=== PATIENT | male | born 1945 | race Caucasian/White ===

== ENCOUNTER 2017-01-04 16:29 | Emergency (ER) | payer OTHER ==
[~2017-01-04] VITALS: Ht 177.8 cm; Wt 44.4 kg
[~2017-01-04 16:29] MED LIST: ASPIRIN81 M2 PO; B-121000 MC2 PO; CALCIUM + D3 E1 EACH PO; CELEXA20 MG PO; FLOMAX0.4 MG PO; KEFLEX500 MG PO; LOTENSIN20 MG PO; METAMUCIL POWD798 GM PO; PROAIR HFA8.5 GM IH; ZOCOR20 MG PO
[2017-01-04 16:52] LABS: EOSINOPHIL (%) 0.8 % (0-5); HEMATOCRIT 35.3 % (38.0-50.0); IMMATURE GRANULOCYTE (%) 0.2 % (0.0-0.7); INSTRUMENT ABS NEUTROPHIL CT 3.4 K/uL; LYMPHOCYTE COUNT 1.2 K/uL (1.0-2.8); MCH 30.4 PG (29.0-34.0); MCHC 32.9 G/DL (30.0-36.0); MCV 92.7 FL (86-99); MEAN PLAT.VOLUME 10.1 uM^3 (9.0-12.4); MONOCYTE COUNT 0.4 K/uL (0-0.8); NEUTROPHIL (%) 66.3 % (45-76); NEUTROPHIL COUNT 3.4 K/uL (1.8-6.4); PLATELET COUNT 231 K/uL (156-360); RBC DIS.WIDTH-CV 14.3 % (11.8-14.6); RBC DIS.WIDTH-SD 48.5 % (39-53); RED BLOOD COUNT 3.81 M/uL (4.00-5.50); WHITE BLOOD COUNT 5.1 K/uL (4.1-10.2)
[2017-01-04 17:01] LABS: INTER. NORMALIZED RATIO 1.1; PROTHROMBIN TIME 10.7 (9.2-11.2); PTT 27.8 (25-32)
[2017-01-04 17:02] LABS: AMYLASE 49 IU/L (1-118); CHLORIDE 102 mEq/L (99-109); POTASSIUM 4.3 mEq/L (3.7-5.4); SODIUM 138 mEq/L (136-147)
[2017-01-04 17:03] LABS: GLUCOSE 83 mg/dL (70-99)
[2017-01-04 17:05] LABS: ANION GAP 7 MEQ/L (2-14)
[2017-01-04 17:07] LABS: GFR ESTIMATE (CALCULATED) > 59 mL/min/; SERUM ETHYL ALCOHOL < 10 mg/dL
[2017-01-04 17:08] LABS: UREA NITROGEN (BUN) 19 mg/dL (9-23)
[2017-01-04 17:09] LABS: POINT-OF-CARE METER ID UU13113702
[2017-01-04 17:10] LABS: LIPASE 34 U/L (1.0-51.0)
[2017-01-04 17:12] LABS: TROP-I INTERPRETATION NEGATIVE; TROPONIN-I < 0.01 ng/mL (0.0-0.30)
[2017-01-04 17:13] LABS: CREATININE 0.9 mg/dL (0.6-1.3); POTASSIUM 4.9 mEq/L (3.7-5.4)
[2017-01-04 18:51] VITALS: BP 147/81
== END 2017-01-04 18:53 | disposition short-term general hospital (02) ==
LOC: EME 16:29
PROVIDERS: Emergency Medicine
DX: I63.9 Cerebral infarction, unspecified (principal); R29.716 NIHSS score 16; I10 Essential (primary) hypertension; E78.5 Hyperlipidemia, unspecified; F17.200 Nicotine dependence, unspecified, uncomplicated; Z86.73 Personal history of transient ischemic attack (TIA), and cerebral infarction without residual deficits
CPT/HCPCS: 70450; 70496; 70498; 80047; 80048; 81003; 82150; 82948; 83605; 83690; 84484; 85025; 85610; 85730; 86850; 86900; 86901; 93005; 99281; 99285; G0480; J2997

== ENCOUNTER 2017-12-19 07:43 | Inpatient (IN) | payer OTHER ==
[~2017-12-19] VITALS: Ht 165.1 cm; Wt 49.6 kg
[2017-12-19] MEDS ORDERED: ATORVASTATIN CA80 MG PO (08:17)
[2017-12-19] MEDS ORDERED: CLOPIDOGREL75 MG PO (08:20)
[2017-12-19] MEDS ORDERED: CITALOPRAM HBR20 MG PO (08:21)
[2017-12-19] MEDS ORDERED: BUPROPION XL150 MG PO (08:21)
[2017-12-19 08:43] LABS: HEMATOCRIT 36.9 % (38.0-50.0); HEMOGLOBIN 12.3 G/DL (12.5-16.6); MCH 31.1 PG (29.0-34.0); MCHC 33.3 G/DL (30.0-36.0); MCV 93.4 FL (86-99); PLATELET COUNT 238 K/uL (156-360); RBC DIS.WIDTH-CV 14.3 % (11.8-14.6); RBC DIS.WIDTH-SD 49.5 % (39-53); RED BLOOD COUNT 3.95 M/uL (4.00-5.50); WHITE BLOOD COUNT 9.4 K/uL (4.1-10.2)
[2017-12-19 09:03] LABS: ALBUMIN 3.7 g/dL (3.2-4.8); CHLORIDE 101 mEq/L (99-109); POTASSIUM 4.9 mEq/L (3.7-5.4); SODIUM 137 mEq/L (136-147)
[2017-12-19 09:05] LABS: GLUCOSE 109 mg/dL (70-99); TOTAL PROTEIN 7.2 g/dL (6.4-8.3)
[2017-12-19 09:07] LABS: TOTAL BILIRUBIN 0.6 mg/dL (0.0-1.0)
[2017-12-19 09:08] LABS: TROP-I INTERPRETATION NEGATIVE; TROPONIN-I < 0.01 ng/mL (0.0-0.30)
[2017-12-19 09:09] LABS: ALKALINE PHOSPHATASE 114 IU/L (3-129); CREATININE 0.9 mg/dL (0.6-1.3); GFR ESTIMATE (CALCULATED) > 59 mL/min/ (58.99-99999)
[2017-12-19 09:10] LABS: AST (GOT) 34 IU/L (2-34); UREA NITROGEN (BUN) 20 mg/dL (9-23)
[2017-12-19 09:11] LABS: DIRECT BILIRUBIN 0.3 mg/dL (0.0-0.3)
[2017-12-19 09:12] LABS: ALT (GPT) 30 IU/L (3-49); LIPASE 35 U/L (1.0-51.0)
[2017-12-19 12:06] VITALS: BP 152/77
[2017-12-19 16:53] LABS: TROP-I INTERPRETATION NEGATIVE; TROPONIN-I < 0.01 ng/mL (0.0-0.30)
[2017-12-19 20:15] VITALS: BP 151/86
[2017-12-19 21:48] LABS: TROP-I INTERPRETATION NEGATIVE; TROPONIN-I < 0.01 ng/mL (0.0-0.30)
[2017-12-19 23:15] VITALS: BP 149/83
[2017-12-20 04:05] VITALS: BP 140/83
[2017-12-20 07:10] VITALS: BP 150/92
[2017-12-20 08:02] LABS: HEMOGLOBIN 10.9 G/DL (12.5-16.6); MCH 30.5 PG (29.0-34.0); MCV 92.4 FL (86-99); PLATELET COUNT 207 K/uL (156-360); RBC DIS.WIDTH-CV 14.4 % (11.8-14.6); RED BLOOD COUNT 3.57 M/uL (4.00-5.50); WHITE BLOOD COUNT 6.6 K/uL (4.1-10.2)
[2017-12-20 08:33] LABS: ALBUMIN 3.1 G/DL (3.2-4.8); ALKALINE PHOSPHATASE 79 IU/L (3-129); ALT (GPT) 21 IU/L (3-49); AST (GOT) 29 IU/L (2-34); CHLORIDE 105 MEQ/L (99-109); CREATININE 0.7 MG/DL (0.6-1.3); GFR ESTIMATE (CALCULATED) > 59 mL/min/ (58.99-99999); GLUCOSE 100 mg/dL (70-99); POTASSIUM 4.3 MEQ/L (3.7-5.4); SODIUM 137 MEQ/L (136-147); TOTAL BILIRUBIN 0.9 MG/DL (0.0-1.0); TOTAL PROTEIN 5.9 G/DL (6.4-8.3); UREA NITROGEN (BUN) 13 mg/dL (9-23)
[2017-12-20 11:26] VITALS: BP 161/77
[2017-12-20 15:10] VITALS: BP 150/80
[2017-12-20 19:30] VITALS: BP 138/88
[2017-12-20 23:55] VITALS: BP 157/80
[2017-12-21 03:30] VITALS: BP 137/83
[2017-12-21 08:00] VITALS: BP 153/91
[2017-12-21] MEDS ORDERED: CIPRO500 MG PO (11:36)
== END 2017-12-21 13:30 | disposition home or self-care (01) | DRG 446 ==
LOC: EME 07:43 → 2EAST 10:58 → EDOF 10:58 → ENRESERV 11:07 → EDOF 11:09 → ENRESERV 11:13 → 2EAST 12:21
PROVIDERS: Internal Medicine
DX: K80.67 Calculus of gallbladder and bile duct with acute and chronic cholecystitis with obstruction (principal); J43.9 Emphysema, unspecified; I10 Essential (primary) hypertension; E78.5 Hyperlipidemia, unspecified; I25.10 Atherosclerotic heart disease of native coronary artery without angina pectoris; N40.0 Benign prostatic hyperplasia without lower urinary tract symptoms; K76.89 Other specified diseases of liver; F17.200 Nicotine dependence, unspecified, uncomplicated; F32.9 Major depressive disorder, single episode, unspecified; Z86.73 Personal history of transient ischemic attack (TIA), and cerebral infarction without residual deficits; Z85.828 Personal history of other malignant neoplasm of skin; Z86.79 Personal history of other diseases of the circulatory system; Z79.02 Long term (current) use of antithrombotics/antiplatelets; Z79.82 Long term (current) use of aspirin
CPT/HCPCS: 71046; 74177; 78226; 80048; 80053; 80076; 83690; 84484; 85027; 87040; 93005; 94760; 99202; 99281; 99284; A9510; J2543; J2805; J7030; J7042; J7050

== ENCOUNTER 2017-12-23 23:05 | Inpatient (IN) | payer OTHER ==
[~2017-12-23] VITALS: Ht 167.6 cm; Wt 49.4 kg
[~2017-12-23 23:05] MED LIST changes: -ASPIRIN325 MG PO; -CIPROFLOXACIN500 M1 PO
[2017-12-23 23:36] LABS: HEMATOCRIT 34.5 % (38.0-50.0); HEMOGLOBIN 11.5 G/DL (12.5-16.6); MCH 30.9 PG (29.0-34.0); MCHC 33.3 G/DL (30.0-36.0); MCV 92.7 FL (86-99); PLATELET COUNT 252 K/uL (156-360); RBC DIS.WIDTH-CV 13.8 % (11.8-14.6); RBC DIS.WIDTH-SD 46.9 % (39-53); RED BLOOD COUNT 3.72 M/uL (4.00-5.50); WHITE BLOOD COUNT 10.7 K/uL (4.1-10.2)
[2017-12-23 23:43] LABS: ALBUMIN 3.5 g/dL (3.2-4.8); CHLORIDE 103 mEq/L (99-109); POTASSIUM 3.9 mEq/L (3.7-5.4); SODIUM 138 mEq/L (136-147)
[2017-12-23 23:45] LABS: GLUCOSE 107 mg/dL (70-99)
[2017-12-23 23:46] LABS: TOTAL PROTEIN 6.8 g/dL (6.4-8.3)
[2017-12-23 23:47] LABS: TOTAL BILIRUBIN 0.5 mg/dL (0.0-1.0)
[2017-12-23 23:49] LABS: ALKALINE PHOSPHATASE 98 IU/L (3-129); CREATININE 0.8 mg/dL (0.6-1.3); GFR ESTIMATE (CALCULATED) > 59 mL/min/ (58.99-99999)
[2017-12-23 23:50] LABS: UREA NITROGEN (BUN) 17 mg/dL (9-23)
[2017-12-23 23:52] LABS: ALT (GPT) 39 IU/L (3-49)
[2017-12-23 23:56] LABS: AST (GOT) 51 IU/L (2-34)
[2017-12-24 00:08] LABS: LIPASE 1585 U/L (1.0-51.0)
[2017-12-24] MEDS ORDERED: CIPROFLOXACIN500 M1 PO (01:16)
[2017-12-24] MEDS ORDERED: CLOPIDOGREL75 MG PO (01:18)
[2017-12-24] MEDS ORDERED: ASPIRIN325 MG PO (01:22)
[2017-12-24 02:27] LABS: APPEARANCE CLEAR ((CLEAR)); BILIRUBIN NEGATIVE; BLOOD NEGATIVE; COLOR YELLOW ((YELLOW)); GLUCOSE (STRIP) NEGATIVE; KETONES 20; LEUKOCYTES NEGATIVE; NITRITE NEGATIVE; PROTEIN (STRIP) NEGATIVE; UCUL ADDED? NO; UROBILINOGEN 0.2 MG/DL (0.2-1.0)
[2017-12-24 04:14] VITALS: BP 167/79
[2017-12-24 06:10] LABS: BASOPHIL (%) 0.2 % (0-1); EOSINOPHIL (%) 0.1 % (0-5); HEMATOCRIT 34.6 % (38.0-50.0); HEMOGLOBIN 11.2 G/DL (12.5-16.6); IMMATURE GRANULOCYTE (%) 0.5 % (0.0-0.7); LYMPHOCYTE (%) 7.9 % (15-42); LYMPHOCYTE COUNT 0.9 K/uL (1.0-2.8); MCH 30.1 PG (29.0-34.0); MCHC 32.4 G/DL (30.0-36.0); MONOCYTE (%) 7.3 % (3-12); MONOCYTE COUNT 0.9 K/uL (0-0.8); NEUTROPHIL COUNT 9.7 K/uL (1.8-6.4); PLATELET COUNT 247 K/uL (156-360); RBC DIS.WIDTH-CV 13.9 % (11.8-14.6); RBC DIS.WIDTH-SD 47.4 % (39-53); RED BLOOD COUNT 3.72 M/uL (4.00-5.50); WHITE BLOOD COUNT 11.6 K/uL (4.1-10.2)
[2017-12-24 07:06] LABS: ALBUMIN 3.2 G/DL (3.2-4.8); ALKALINE PHOSPHATASE 83 IU/L (3-129); ALT (GPT) 28 IU/L (3-49); AST (GOT) 36 IU/L (2-34); CHLORIDE 104 MEQ/L (99-109); CREATININE 0.7 MG/DL (0.6-1.3); GFR ESTIMATE (CALCULATED) > 59 mL/min/ (58.99-99999); GLUCOSE 98 mg/dL (70-99); LIPASE 1029 U/L (1.0-51.0); POTASSIUM 4.5 MEQ/L (3.7-5.4); SODIUM 140 MEQ/L (136-147); TOTAL PROTEIN 5.9 G/DL (6.4-8.3); UREA NITROGEN (BUN) 13 mg/dL (9-23)
[2017-12-24 07:09] LABS: TOTAL BILIRUBIN 0.6 MG/DL (0.0-1.0)
[2017-12-24 07:32] VITALS: BP 155/85
[2017-12-24 15:18] VITALS: BP 111/73
[2017-12-24 20:44] VITALS: BP 174/89
[2017-12-24 23:31] VITALS: BP 158/88
[2017-12-25 03:00] VITALS: BP 178/88
[2017-12-25 06:10] VITALS: BP 161/80
[2017-12-25 06:30] LABS: HEMATOCRIT 33.9 % (38.0-50.0); HEMOGLOBIN 11.1 G/DL (12.5-16.6); MCH 30.9 PG (29.0-34.0); MCHC 32.7 G/DL (30.0-36.0); MCV 94.4 FL (86-99); PLATELET COUNT 237 K/uL (156-360); RBC DIS.WIDTH-CV 14.2 % (11.8-14.6); RBC DIS.WIDTH-SD 49.3 % (39-53); RED BLOOD COUNT 3.59 M/uL (4.00-5.50); WHITE BLOOD COUNT 10.6 K/uL (4.1-10.2)
[2017-12-25 06:58] LABS: ALKALINE PHOSPHATASE 80 IU/L (3-129); ALT (GPT) 24 IU/L (3-49); AST (GOT) 31 IU/L (2-34); CHLORIDE 102 MEQ/L (99-109); CREATININE 0.6 MG/DL (0.6-1.3); DIRECT BILIRUBIN 0.1 mg/dL (0.0-0.3); GFR ESTIMATE (CALCULATED) > 59 mL/min/ (58.99-99999); GLUCOSE 84 mg/dL (70-99); LIPASE 321 U/L (1.0-51.0); POTASSIUM 4.6 MEQ/L (3.7-5.4); SODIUM 137 MEQ/L (136-147); TOTAL BILIRUBIN 0.6 MG/DL (0.0-1.0); TOTAL PROTEIN 5.6 G/DL (6.4-8.3); UREA NITROGEN (BUN) 9 mg/dL (9-23)
[2017-12-25 07:33] VITALS: BP 147/68
[2017-12-25 11:58] VITALS: BP 140/82
[2017-12-25 16:33] VITALS: BP 181/95
[2017-12-26 03:00] VITALS: BP 148/78
[2017-12-26 08:24] VITALS: BP 180/92
[2017-12-26 10:23] VITALS: BP 142/68
[2017-12-26 17:15] VITALS: BP 132/80
[2017-12-26 20:00] VITALS: BP 144/85
[2017-12-27 05:52] VITALS: BP 144/93
[2017-12-27 06:13] LABS: ALBUMIN 2.9 G/DL (3.2-4.8); ALKALINE PHOSPHATASE 69 IU/L (3-129); ALT (GPT) 28 IU/L (3-49); AST (GOT) 40 IU/L (2-34); CHLORIDE 104 MEQ/L (99-109); CREATININE 0.7 MG/DL (0.6-1.3); GFR ESTIMATE (CALCULATED) > 59 mL/min/ (58.99-99999); GLUCOSE 99 mg/dL (70-99); POTASSIUM 3.7 MEQ/L (3.7-5.4); SODIUM 137 MEQ/L (136-147); TOTAL BILIRUBIN 0.5 MG/DL (0.0-1.0); TOTAL PROTEIN 5.9 G/DL (6.4-8.3); UREA NITROGEN (BUN) 9 mg/dL (9-23)
[2017-12-27 07:40] VITALS: BP 140/84
[2017-12-27 09:16] VITALS: BP 140/82
[2017-12-27 11:56] VITALS: BP 169/82
[2017-12-27 12:23] LABS: HEMATOCRIT 35.8 % (38.0-50.0); HEMOGLOBIN 11.7 G/DL (12.5-16.6); MCH 30.7 PG (29.0-34.0); MCHC 32.7 G/DL (30.0-36.0); PLATELET COUNT 288 K/uL (156-360); RBC DIS.WIDTH-CV 14.1 % (11.8-14.6); RBC DIS.WIDTH-SD 48.4 % (39-53); RED BLOOD COUNT 3.81 M/uL (4.00-5.50)
[2017-12-27 16:30] VITALS: BP 133/75
[2017-12-27 23:22] VITALS: BP 104/64
[2017-12-28 05:28] LABS: CHLORIDE 109 MEQ/L (99-109); CREATININE 0.7 MG/DL (0.6-1.3); GFR ESTIMATE (CALCULATED) > 59 mL/min/ (58.99-99999); GLUCOSE 107 mg/dL (70-99); POTASSIUM 3.4 MEQ/L (3.7-5.4); SODIUM 141 MEQ/L (136-147); UREA NITROGEN (BUN) 10 mg/dL (9-23)
[2017-12-28 05:29] LABS: HEMATOCRIT 29.2 % (38.0-50.0); MCHC 33.2 G/DL (30.0-36.0); MCV 93.3 FL (86-99); PLATELET COUNT 220 K/uL (156-360); RBC DIS.WIDTH-CV 14.3 % (11.8-14.6); RBC DIS.WIDTH-SD 48.4 % (39-53); RED BLOOD COUNT 3.13 M/uL (4.00-5.50); WHITE BLOOD COUNT 11.3 K/uL (4.1-10.2)
[2017-12-28 05:31] LABS: HEMOGLOBIN 9.7 G/DL (12.5-16.6)
[2017-12-28 07:28] VITALS: BP 146/74
[2017-12-28 15:59] VITALS: BP 130/64
[2017-12-28 23:28] VITALS: BP 143/79
[2017-12-29 05:06] LABS: HEMOGLOBIN 9.1 G/DL (12.5-16.6); MCH 30.5 PG (29.0-34.0); MCHC 32.5 G/DL (30.0-36.0); PLATELET COUNT 234 K/uL (156-360); RBC DIS.WIDTH-CV 14.6 % (11.8-14.6); RBC DIS.WIDTH-SD 50.2 % (39-53); RED BLOOD COUNT 2.98 M/uL (4.00-5.50); WHITE BLOOD COUNT 8.8 K/uL (4.1-10.2)
[2017-12-29 05:32] LABS: CHLORIDE 106 MEQ/L (99-109); CREATININE 0.8 MG/DL (0.6-1.3); GFR ESTIMATE (CALCULATED) > 59 mL/min/ (58.99-99999); GLUCOSE 95 mg/dL (70-99); POTASSIUM 3.1 MEQ/L (3.7-5.4); SODIUM 140 MEQ/L (136-147); UREA NITROGEN (BUN) 9 mg/dL (9-23)
[2017-12-29 07:41] VITALS: BP 140/80
[2017-12-29 08:42] LABS: IRON 13 MCG/DL (35-150); TRANSFERRIN (TIBC) 133.1 mg/dL (215-380); TRANSFERRIN SATUR. 10 % (20-55)
[2017-12-29 10:51] LABS: MAGNESIUM 1.5 mg/dl (1.3-2.7)
[2017-12-29 16:00] VITALS: BP 171/87
[2017-12-29 16:08] VITALS: BP 162/88
[2017-12-29 23:43] VITALS: BP 160/78
[2017-12-30 04:59] LABS: HEMATOCRIT 33.1 % (38.0-50.0); HEMOGLOBIN 10.8 G/DL (12.5-16.6); MCH 30.2 PG (29.0-34.0); MCHC 32.6 G/DL (30.0-36.0); MCV 92.5 FL (86-99); RBC DIS.WIDTH-CV 14.4 % (11.8-14.6); RBC DIS.WIDTH-SD 48.6 % (39-53); WHITE BLOOD COUNT 9.4 K/uL (4.1-10.2)
[2017-12-30 05:32] LABS: CHLORIDE 100 MEQ/L (99-109); CREATININE 0.7 MG/DL (0.6-1.3); GFR ESTIMATE (CALCULATED) > 59 mL/min/ (58.99-99999); GLUCOSE 80 mg/dL (70-99); SODIUM 137 MEQ/L (136-147); UREA NITROGEN (BUN) 6 mg/dL (9-23)
[2017-12-30 05:34] LABS: POTASSIUM 4.2 MEQ/L (3.7-5.4)
[2017-12-30 06:40] LABS: PLATELET COUNT 315 K/uL (156-360); RED BLOOD COUNT 3.58 M/uL (4.00-5.50)
[2017-12-30 07:53] VITALS: BP 161/79
[2017-12-30] MEDS ORDERED: NICOTINE PATCH1 EAC1 TD (13:50)
[2017-12-30] MEDS ORDERED: FERROUS SULFAT325 MG PO (13:50)
[2017-12-30] MEDS ORDERED: POLYETHYLENE GL17 GM PO (13:51)
[2017-12-30] MEDS ORDERED: DOCUSATE SODIU100 MG PO (13:51)
[2017-12-30 16:05] VITALS: BP 127/83
== END 2017-12-30 17:02 | disposition home health service (06) | DRG 356 ==
LOC: EME → EDBD 23:05 → 3EAST 12-24 01:38 → EDOF 12-24 01:38 → ENRESERV 12-24 01:39 → 3EAST 12-24 03:19
PROVIDERS: Emergency Medicine; Family Medicine; Hospitalist; Internal Medicine; Physician Assistant
PROC: 0FT44ZZ Resection of Gallbladder, Percutaneous Endoscopic Approach (ICD-10-PCS; principal; 2017-12-26)
DX: K91.89 Other postprocedural complications and disorders of digestive system (principal); K85.80 Other acute pancreatitis without necrosis or infection; K29.80 Duodenitis without bleeding; Y84.8 Other medical procedures as the cause of abnormal reaction of the patient, or of later complication, without mention of misadventure at the time of the procedure; K82.9 Disease of gallbladder, unspecified; K80.10 Calculus of gallbladder with chronic cholecystitis without obstruction; K66.0 Peritoneal adhesions (postprocedural) (postinfection); J69.0 Pneumonitis due to inhalation of food and vomit; E87.6 Hypokalemia; R06.03 Acute respiratory distress; R09.02 Hypoxemia; R74.8 Abnormal levels of other serum enzymes; R13.10 Dysphagia, unspecified; D50.9 Iron deficiency anemia, unspecified; J44.9 Chronic obstructive pulmonary disease, unspecified; I10 Essential (primary) hypertension; I73.9 Peripheral vascular disease, unspecified; K59.00 Constipation, unspecified; N40.0 Benign prostatic hyperplasia without lower urinary tract symptoms; E78.5 Hyperlipidemia, unspecified; F32.9 Major depressive disorder, single episode, unspecified; F17.210 Nicotine dependence, cigarettes, uncomplicated; Z80.0 Family history of malignant neoplasm of digestive organs; Z86.73 Personal history of transient ischemic attack (TIA), and cerebral infarction without residual deficits; Z86.79 Personal history of other diseases of the circulatory system; Z82.49 Family history of ischemic heart disease and other diseases of the circulatory system
CPT/HCPCS: 71045; 71046; 74018; 74177; 74230; 74330; 80048; 80053; 80076; 81003; 82272; 82607; 83540; 83690; 83735; 84466; 85025; 85027; 87081; 88304; 92610 GN; 92611 GN; 94640; 94640 76; 94799; 99202; 99281; 99285; C1757; C1769; C2625; J0330; J0360; J1644; J1756; J1885; J2270; J2405; J2543; J3010; J3475; J7030; J7050; J7120; S0028

== ENCOUNTER → 2017-12-23 | Outpatient (CLI) | payer OTHER ==
[~2017-12-23] VITALS: Ht 167.6 cm; Wt 47.6 kg
[~2017-12-23] MED LIST changes: +ASPIRIN325 MG PO; +ATORVASTATIN CA80 MG PO; +BUPROPION XL150 MG PO; +CIPRO500 MG PO; +CIPROFLOXACIN500 M1 PO; +CITALOPRAM HBR20 MG PO; +CLOPIDOGREL75 MG PO
== END | disposition home or self-care (01) ==
LOC: AMB 11:48
DX: K80.50 Calculus of bile duct without cholangitis or cholecystitis without obstruction (principal); K57.90 Diverticulosis of intestine, part unspecified, without perforation or abscess without bleeding; J44.9 Chronic obstructive pulmonary disease, unspecified; F17.200 Nicotine dependence, unspecified, uncomplicated; Z86.73 Personal history of transient ischemic attack (TIA), and cerebral infarction without residual deficits
CPT/HCPCS: 74330; 87081; C1757; C1769; C2625; J0330; J0360; J3010